=== PATIENT | male | born 1935 | race Caucasian/White ===

== ENCOUNTER 2018-01-05 10:00 | Outpatient (CLI) | payer MEDICARE, SELFPAY | END 2018-01-05 10:01 | PROVIDERS: PCP Internal Medicine; Visit Provider Orthopaedic Surgery | DX: Z47.1 Aftercare following joint replacement surgery (principal); Z96.641 Presence of right artificial hip joint; M79.651 Pain in right thigh | CPT/HCPCS: 99213 ==